=== PATIENT | female | born 1990 | race Two or more races ===

== ENCOUNTER 2025-10-17 08:33 | Emergency (ER) | payer OTHER ==
[~2025-10-17] VITALS: Ht 167.6 cm; Wt 64.0 kg
[2025-10-17] MEDS ORDERED: 0.9 % SODIUM CHLORIDE 1,000 ML IV ONE (09:30)
[2025-10-17] MEDS ORDERED: FAMOtidine 10 MG/ML (4ML VIAL) IV ONE (09:30)
[2025-10-17] MEDS ORDERED: ONDANSETRON HCL 2 MG/ML VIAL IV ONE (09:30)
[2025-10-17] MEDS ORDERED: FAMOTIDINE/PF 20 MG/2 ML VIAL ONE (09:36)
[2025-10-17] MEDS ORDERED: ONDANSETRON HCL 2 MG/ML VIAL ONE (09:36)
[2025-10-17 10:51] LABS: BASO % 0.2 % (0.1-1.2); EOS # 0.00 (0.04-0.54); EOS % 0.0 % (0.7-7.0); LYMPH # 0.69 (1.18-3.74); LYMPH % 6.8 % (19.3-53.1); MEAN PLATELET VOLUME 10.80 fl (9.4-12.4); MONO # 0.31 (0.24-0.82); MONO % 3.0 % (4.7-12.5); NEUT # 9.18 (1.56-6.13); NEUT % 89.8 % (34.0-71.1); RED CELL DISTRIBUTION WIDTH 12.3 % (11.6-14.4)
[2025-10-17 11:09] LABS: COVID-19 AG NEGATIVE (NEGATIVE)
[2025-10-17] MEDS ORDERED: ZOFRAN8 MG PO (11:36)
[2025-10-17] MEDS ORDERED: PEPCID AC20 MG PO (11:36)
[2025-10-17] MEDS ORDERED: ACETAMINOPHEN 500 MG GEL..CAP PO PRN (11:45)
[2025-10-17] MEDS ORDERED: MORPHINE SULFATE 2 MG/ML SYRINGE IV ONE (11:45)
[2025-10-17] MEDS ORDERED: MORPHINE SULFATE 4 MG/ML CARTRIDGE IV ONE (12:30)
== END 2025-10-17 14:21 | disposition home or self-care (01) ==
LOC: ER 08:34
PROVIDERS: General Practice
DX: O26.891 Other specified pregnancy related conditions, first trimester (principal); Z3A.12 12 weeks gestation of pregnancy; R11.2 Nausea with vomiting, unspecified; Z20.822 Contact with and (suspected) exposure to COVID-19